=== PATIENT | male | born 1970 | race Caucasian/White ===

== ENCOUNTER 2023-12-27 23:40 | Emergency (ER) | payer BC ==
[~2023-12-27] VITALS: Ht 177.8 cm; Wt 102.1 kg
[2023-12-27 23:43] VITALS: BP_SYST 145; PULSE 105; RESP 22; TEMP 98.5; O2SAT 93
[2023-12-28] MEDS: EPINEPHRINE HCL/PF 1 MG/ML AMP SUBCUT ONE (00:15)
[2023-12-28] MEDS: methylPREDNISolone SOD SUCC/PF 62.5 MG/ML VIAL IVP ONE (00:17)
[2023-12-28] MEDS: DIPHENHYDRAMINE INJ 50 MG/ML VIAL IVP ONE (00:17)
[2023-12-28] MEDS ORDERED: METH-776 PO (01:32)
[2023-12-28 01:36] VITALS: BP_SYST 146; PULSE 84; RESP 14; TEMP 97; O2SAT 96
== END 2023-12-28 01:37 | disposition home or self-care (01) ==
LOC: SED 23:40
DX: T63.441A Toxic effect of venom of bees, accidental (unintentional), initial encounter (principal); R06.02 Shortness of breath; Z79.899 Other long term (current) drug therapy; Y92.89 Other specified places as the place of occurrence of the external cause
CPT/HCPCS: 99284; 96374; 96375; 96372; J1200; J0171; J2930